=== PATIENT | female | born 1930 | race Caucasian/White ===

== ENCOUNTER 2017-12-08 21:55 | Emergency (ER) | payer OTHER ==
[2017-12-09 01:18] LABS: ADD MAN DIFF? NO
[2017-12-09 01:29] LABS: WHITE BLOOD COUNT 7.8 10^3/ul (4.8-10.8)
[2017-12-09 01:29] LABS: BASOPHILS % 0.4 % (0.0-2.0); EOSINOPHILS # 0.1 10^3/ul (0.0-0.5); EOSINOPHILS % 0.9 % (0.0-7.0); HEMATOCRIT 42.6 % (37.0-47.0); HEMOGLOBIN 14.1 g/dl (12.0-16.0); LYMPHOCYTES # 1.5 10^3/ul (0.8-2.9); MEAN CORPUSCULAR HEMOGLOBIN 28.4 pg (29.0-33.0); MEAN CORPUSCULAR HGB CONC 33.1 g/dl (32.0-37.0); MEAN CORPUSCULAR VOLUME 85.7 fl (82.0-101.0); MEAN PLATELET VOLUME 10.8 fl (7.4-10.4); MONOCYTE # 0.8 10^3/ul (0.3-0.9); MONOCYTES % 10.4 % (0.0-11.0); NEUTROPHIL # 5.3 10^3/ul (1.6-7.5); NEUTROPHILS % 68.8 % (39.0-77.0); PLATELET COUNT 217 10^3/UL (140-415); RED BLOOD COUNT 4.97 10^6/ul (4.20-5.40); RED CELL DISTRIBUTION WIDTH 13.6 % (11.5-14.5)
[2017-12-09 01:37] LABS: ALANINE AMINOTRANSFERASE 16 IU/L (13-69); ALBUMIN 4.3 g/dl (3.3-4.9); ALBUMIN/GLOBULIN RATIO 1.38; ALKALINE PHOSPHATASE 50 IU/L (42-121); ANION GAP 16 (8-16); ASPARTATE AMINO TRANSFERASE 26 IU/L (15-46); BILIRUBIN,INDIRECT 0.4 mg/dl (0-1.1); BILIRUBIN,TOTAL 0.4 mg/dl (0.2-1.3); BLOOD UREA NITROGEN 21 mg/dl (7-20); CALCIUM 9.8 mg/dl (8.4-10.2); CARBON DIOXIDE 27 mmol/L (21-31); CHLORIDE 101 mmol/L (97-110); CREATININE 0.61 mg/dl (0.44-1.00); GLUCOSE 162 mg/dl (70-220); LIPASE 358 U/L (23-300); POTASSIUM 3.7 mmol/L (3.5-5.1); SODIUM 140 mmol/L (135-144); TOTAL PROTEIN 7.4 g/dl (6.1-8.1)
[2017-12-09 02:03] LABS: URINE PH (Dip) POC 5.5 (5.0-8.5)
[2017-12-09 02:03] LABS: URINE BLOOD (Dip) POC Trace-lysed (NEGATIVE); URINE GLUCOSE (Dip) POC Negative (NEGATIVE); URINE KETONES (Dip) POC Negative (NEGATIVE); URINE LEUKOCYTE EST (Dip) POC Negative (NEGATIVE); URINE NITRITE (Dip) POC Negative (NEGATIVE); URINE TOTAL PROTEIN POC Trace (NEGATIVE)
== END 2017-12-09 05:10 | disposition home or self-care (01) ==
LOC: E/R 21:55
DX: R53.1 Weakness (principal); I10 Essential (primary) hypertension; E11.9 Type 2 diabetes mellitus without complications; R51 Headache; Z96.642 Presence of left artificial hip joint; Z79.84 Long term (current) use of oral hypoglycemic drugs
CPT/HCPCS: 36415; 70450; 71045; 80053; 81003; 83690; 85025; 93005; 99285-25

== ENCOUNTER 2019-02-06 11:17 | Inpatient (IN) | payer OTHER ==
[2019-02-06 12:16] LABS: ADD MAN DIFF? NO
[2019-02-06 12:22] LABS: WHITE BLOOD COUNT 9.5 10^3/ul (4.8-10.8)
[2019-02-06 12:22] LABS: BASOPHILS % 0.3 % (0.0-2.0); EOSINOPHILS % 0.4 % (0.0-7.0); HEMATOCRIT 42.9 % (37.0-47.0); HEMOGLOBIN 13.9 g/dl (12.0-16.0); LYMPHOCYTES # 0.6 10^3/ul (0.8-2.9); LYMPHOCYTES % 6.4 % (15.0-51.0); MEAN CORPUSCULAR HEMOGLOBIN 28.5 pg (29.0-33.0); MEAN CORPUSCULAR HGB CONC 32.4 g/dl (32.0-37.0); MEAN CORPUSCULAR VOLUME 87.9 fl (82.0-101.0); MEAN PLATELET VOLUME 10.5 fl (7.4-10.4); MONOCYTE # 0.7 10^3/ul (0.3-0.9); MONOCYTES % 7.2 % (0.0-11.0); NEUTROPHIL # 8.1 10^3/ul (1.6-7.5); NEUTROPHILS % 85.4 % (39.0-77.0); PLATELET COUNT 187 10^3/UL (140-415); RED BLOOD COUNT 4.88 10^6/ul (4.20-5.40); RED CELL DISTRIBUTION WIDTH 13.7 % (11.5-14.5)
[2019-02-06 12:37] LABS: PROTIME 23.6 Sec (11.9-14.9); PT RATIO 1.8
[2019-02-06 12:38] LABS: PARTIAL THROMBOPLASTIN TIME 38.9 Sec (23.0-35.0)
[2019-02-06 12:43] LABS: ALANINE AMINOTRANSFERASE 13 IU/L (13-69); ALBUMIN 3.7 g/dl (3.3-4.9); ALBUMIN/GLOBULIN RATIO 1.15; ALKALINE PHOSPHATASE 63 IU/L (42-121); ANION GAP 9 (5-13); ASPARTATE AMINO TRANSFERASE 19 IU/L (15-46); BILIRUBIN,INDIRECT 0.8 mg/dl (0-1.1); BILIRUBIN,TOTAL 0.8 mg/dl (0.2-1.3); BLOOD UREA NITROGEN 19 mg/dl (7-20); CALCIUM 9.5 mg/dl (8.4-10.2); CARBON DIOXIDE 29 mmol/L (21-31); CHLORIDE 101 mmol/L (97-110); CREATININE 0.74 mg/dl (0.44-1.00); GLUCOSE 270 mg/dl (70-220); POTASSIUM 3.6 mmol/L (3.5-5.1); SODIUM 139 mmol/L (135-144); TOTAL PROTEIN 6.9 g/dl (6.1-8.1)
[2019-02-06 12:54] LABS: TROPONIN-I < 0.012 ng/ml (0.000-0.120)
[2019-02-06 13:04] LABS: ADD UMIC YES; UR ASCORBIC ACID 40 mg/dL (NEGATIVE); UR BACTERIA FEW /HPF (NONE SEEN); UR BILIRUBIN (Dip) NEGATIVE (NEGATIVE); UR BLOOD (Dip) NEGATIVE (NEGATIVE); UR CLARITY CLEAR (CLEAR); UR COLOR YELLOW (YELLOW); UR GLUCOSE (Dip) 3+ mg/dL (NEGATIVE); UR KETONES (Dip) TRACE mg/dL (NEGATIVE); UR LEUKOCYTE ESTERASE (Dip) NEGATIVE Leu/ul (NEGATIVE); UR NITRITE (Dip) POSITIVE (NEGATIVE); UR RBC 1 /HPF (0-5); UR SPECIFIC GRAVITY (Dip) 1.022 (1.003-1.030); UR TOTAL PROTEIN (Dip) NEGATIVE (NEGATIVE); UR UROBILINOGEN (Dip) 1+ mg/dL (NEGATIVE); UR WBC 2 /HPF (0-5)
[2019-02-06] MEDS: PIPER-TAZO 3.375 GM IV (PMX) 100 ML IVPB ×2 (13:29→19:45)
[2019-02-06] MEDS: SOD CHLORIDE 0.9% IV (13:29)
[2019-02-06] MEDS ORDERED: ACETAMINOPHEN 325 MG TAB PO (14:30)
[2019-02-06] MEDS ORDERED: ONDANSETRON 4 MG INJ IV ×2 (14:30→15:00)
[2019-02-06 14:54] LABS: LACTIC ACID 2.4 mmol/L (0.5-2.0)
[2019-02-06] MEDS ORDERED: NACL 0.9% 3 ML SYG IV (15:00)
[2019-02-06] MEDS: NS + KCL 20 MEQ 1,000 ML IV (15:50)
[2019-02-06] MEDS ORDERED: GLUCAGON 1 MG INJ IM (16:00)
[2019-02-06] MEDS ORDERED: GLUCOSE GEL 15 GRAM TUBE BUCCAL (16:00)
[2019-02-06] MEDS ORDERED: GLUCOSE GEL 15 GRAM TUBE PO ×2 (16:00)
[2019-02-06] MEDS ORDERED: DEXTROSE 50% 50 ML SYRINGE IV ×2 (16:00)
[2019-02-06 17:24] LABS: LACTIC ACID 1.4 mmol/L (0.5-2.0)
[2019-02-06] MEDS: INSULIN ASPART [NOVOLOG] 3 ML PEN SC ×2 (17:48→21:00)
[2019-02-07] MEDS: PIPER-TAZO 3.375 GM IV (PMX) 100 ML IVPB ×4 (00:34→17:46)
[2019-02-07] MEDS: INSULIN ASPART [NOVOLOG] 3 ML PEN SC ×6 (00:35→20:50)
[2019-02-07] MEDS: ACCU-CHEK XX (02:00)
[2019-02-07] MEDS: morphine 2 MG INJ IV ×2 (03:59→14:08)
[2019-02-07 05:19] LABS: ADD MAN DIFF? NO
[2019-02-07 05:20] LABS: WHITE BLOOD COUNT 6.4 10^3/ul (4.8-10.8)
[2019-02-07 05:20] LABS: BASOPHILS % 0.6 % (0.0-2.0); EOSINOPHILS # 0.2 10^3/ul (0.0-0.5); EOSINOPHILS % 2.8 % (0.0-7.0); HEMATOCRIT 38.6 % (37.0-47.0); HEMOGLOBIN 12.3 g/dl (12.0-16.0); LYMPHOCYTES # 1.2 10^3/ul (0.8-2.9); LYMPHOCYTES % 17.9 % (15.0-51.0); MEAN CORPUSCULAR HEMOGLOBIN 28.5 pg (29.0-33.0); MEAN CORPUSCULAR HGB CONC 31.9 g/dl (32.0-37.0); MEAN CORPUSCULAR VOLUME 89.6 fl (82.0-101.0); MEAN PLATELET VOLUME 10.1 fl (7.4-10.4); MONOCYTE # 0.7 10^3/ul (0.3-0.9); MONOCYTES % 11.3 % (0.0-11.0); NEUTROPHIL # 4.3 10^3/ul (1.6-7.5); NEUTROPHILS % 67.1 % (39.0-77.0); PLATELET COUNT 182 10^3/UL (140-415); RED BLOOD COUNT 4.31 10^6/ul (4.20-5.40); RED CELL DISTRIBUTION WIDTH 13.7 % (11.5-14.5)
[2019-02-07 05:38] LABS: HEMOGLOBIN A1C 5.8 % (0-5.9)
[2019-02-07] MEDS: NS + KCL 20 MEQ 1,000 ML IV ×3 (05:51→22:33)
[2019-02-07 05:58] LABS: ANION GAP 4 (5-13); BLOOD UREA NITROGEN 14 mg/dl (7-20); CALCIUM 8.2 mg/dl (8.4-10.2); CARBON DIOXIDE 28 mmol/L (21-31); CHLORIDE 109 mmol/L (97-110); CREATININE 0.61 mg/dl (0.44-1.00); GLUCOSE 131 mg/dl (70-220); MAGNESIUM 1.9 mg/dl (1.7-2.5); PHOSPHORUS 3.7 mg/dl (2.5-4.9); POTASSIUM 3.7 mmol/L (3.5-5.1); SODIUM 141 mmol/L (135-144)
[2019-02-07] MEDS: ENOXAPARIN 40 MG/0.4 ML SYG SC (08:35)
[2019-02-08] MEDS: PIPER-TAZO 3.375 GM IV (PMX) 100 ML IVPB ×4 (00:26→17:23)
[2019-02-08] MEDS: INSULIN ASPART [NOVOLOG] 3 ML PEN SC ×5 (01:00→17:41)
[2019-02-08] MEDS: ACCU-CHEK XX (01:12)
[2019-02-08] MEDS: morphine 2 MG INJ IV (05:57)
[2019-02-08] MEDS: ENOXAPARIN 40 MG/0.4 ML SYG SC (08:31)
[2019-02-08] MEDS: NS + KCL 20 MEQ 1,000 ML IV (14:41)
== END 2019-02-08 18:25 | disposition home health service (06) | DRG 871 ==
LOC: E/R 11:17 → 2NE 14:24
PROVIDERS: Internal Medicine
DX: A41.9 Sepsis, unspecified organism (principal); G93.41 Metabolic encephalopathy; J69.0 Pneumonitis due to inhalation of food and vomit; N39.0 Urinary tract infection, site not specified; I48.91 Unspecified atrial fibrillation; E11.9 Type 2 diabetes mellitus without complications; G30.9 Alzheimer's disease, unspecified; F02.80 Dementia in other diseases classified elsewhere, unspecified severity, without behavioral disturbance, psychotic disturbance, mood disturbance, and anxiety; B96.20 Unspecified Escherichia coli [E. coli] as the cause of diseases classified elsewhere; F32.9 Major depressive disorder, single episode, unspecified; I10 Essential (primary) hypertension; Z96.649 Presence of unspecified artificial hip joint; Z79.4 Long term (current) use of insulin
CPT/HCPCS: 36415; 70450; 71045; 80048; 80053; 81001; 82962; 83036; 83605; 83735; 84100; 84484; 85025; 85610; 85730; 87040-91; 87086; 92526; 92610; 93005; 96374; 99285-25